=== PATIENT | female | born 1930 | race Caucasian/White ===

== ENCOUNTER 2018-01-19 12:06 | Observation (INO) ==
--- NOTE | 2018-01-19 13:05 | Emergency Department Report ---
Extremity Problem HPI - General Chief complaint: Extremity Problem,Nontraumatic Stated complaint: foot and leg pain/swelling Time Seen by Provider: 01/19/18 12:40 Source: patient, family Mode of arrival: wheelchair Limitations: no limitations - History of Present Illness HPI Narrative: PT presents with a complaint of bilateral LE edema and pain. PT states she has had intermittent swelling in the past which usually resolves by elevating her legs however legs have continued to swell and it is now difficult for her to ambulate 2/2 pain. PT denies any SOA or cough. She is on a diuretic. She reports unknown history of CHF. She lives on her own and has a daughter nearby who has been staying with her in the evenings. MD Complaint: extremity pain, extremity swelling Onset (ago): week(s) Consistency: constant - Related Data Home Medications Medication Instructions Recorded Confirmed Rivaroxaban [Xarelto] 20 mg PO WS #0 12/23/15 01/19/18 Vitamin B Complex + C [Total B + C] 1 tab PO DAILY 07/29/17 01/19/18 Cholecalciferol (Vitamin D3) 1,000 unit PO DAILY 01/19/18 01/19/18 [Vitamin D3] Digoxin [Digoxin] 125 mcg PO DAILY 01/19/18 01/19/18 Furosemide [Lasix 40 mg Tab] 40 mg PO DAILY 01/19/18 01/19/18 Metformin [Glucophage] 500 mg PO BIDWM 01/19/18 01/19/18 Potassium Chloride 10 meq PO BID 01/19/18 01/19/18 dilTIAZem HCl [Diltiazem 24Hr ER] 180 mg PO HS 01/19/18 01/19/18 Allergies Allergy/AdvReac Type Severity Reaction Status Date / Time No Known Allergies Allergy Verified 01/19/18 12:41 Review of Systems All systems: reviewed and negative except as stated Constitutional: Reports: as per HPI Cardiovascular: Reports: as per HPI Respiratory: Reports: as per HPI Musculoskeletal: Reports: as per HPI Integumentary: Reports: as per HPI PFS Patient Stated Medical History Migraine Yes: infrequent Cataracts Yes Other HEENT Yes: wears glasses Congestive Heart Failure Yes Diabetes Mellitus Type 2 Yes: "borderline" Osteoarthritis Yes Surgical History: Tonsils. Appendix. Hysterectomy - Social History Smoking status: Former smoker Household members: none Current occupational status: retired Physical Exam - Limitations Limitations: no limitations - General General appearance: alert - Normal Exams: Head:: Normocephalic without trauma Neck:: Full range of motion, without adenopathy Chest/Respirations:: Clear all landrum, with good airflow, and symmetry bilaterally Cardiovascular:: Regular rate and rhythm, without murmur or gallop, Pulses 2+ all extremities, capillary refill, <2 seconds all extremities Abdomen:: Bowel sounds positive, soft, non-tender, non-distended Integumentary:: No rashes Neurological:: Patient is alert, and oriented, cranial nerves, motor/sensory/ cerebellar, exams w/o gross deficits, to observation Psychiatric:: Patient exhibits, appropriate attention, emotion and affect - Expanded Lower Extremity Exam left Lower leg exam: Present: tenderness, swelling (3+ pitting edema) right Lower leg exam: Present: tenderness (3+ pitting edema), swelling Course Vital Signs Temperature 97.8 F 01/19/18 12:22 Pulse Rate 80 01/19/18 12:22 Respiratory Rate 18 01/19/18 12:22 Blood Pressure 154/70 H 01/19/18 12:22 Pulse Oximetry 95 01/19/18 12:22 Temperature 97.8 F 01/19/18 12:22 Pulse Rate 80 01/19/18 12:22 Respiratory Rate 18 01/19/18 12:22 Blood Pressure 154/70 H 01/19/18 12:22 Pulse Oximetry 95 01/19/18 12:22 Extremity Problem, Nontraumati - MDM Narrative Medical decision making narrative: Labs reviewed. US results per Dr Barnard negative for DVT. BNP slightly elevated at 1930. Pt does take daily lasix and was provided an additional 60mg with good result. Unknown actual output total as pt missed the collection container. Pt requires at least 2 staff to transfer from bed to [facility]. SHe does live alone. Hospitalist called for admit and will admit observation for now. Results and plan discussed with pt and family who voice understanding. - Lab Data Attestation: I reviewed the patient's lab results. Result diagrams: 01/19/18 13:25 01/19/18 13:25 Lab Results 01/19/18 01/19/18 Range/Units 13:25 13:25 WBC 6.6 (4.5-11.0) T/MM3 RBC 3.51 L (4.00-5.20) M/MM3 Hgb 11.2 L (12-16) GM/DL Hct 34.6 L (36-46) % MCV 98.6 (80-100) UM3 MCH 31.9 (26-34) UUG MCHC 32.4 (31-37) GM/DL RDW Std Deviation 47.1 (36.9-50.2) FL Plt Count 232 (130-400) T/MM3 MPV 10.3 (9.4-12.4) UM3 Immature Gran % (Auto) 0.2 (0.0-0.5) % Neut % (Auto) 70.3 H (33-66) % Lymph % (Auto) 18.9 L (23-45) % [place] % (Auto) 8.2 (0-9.0) % Eos % (Auto) 1.8 (0-4) % Baso % (Auto) 0.6 (0-2) % Neut # (Auto) 4.6 (1.8-7.7) T/MM3 Lymph # (Auto) 1.3 (1-4.8) T/MM3 [place] # (Auto) 0.5 (0-0.8) T/MM3 Eos # (Auto) 0.1 (0-0.5) T/MM3 Baso # (Auto) 0.0 (0-0.2) T/MM3 Abs Immat Gran (auto) 0.01 (0.00-0.03) T/MM3 Turbidity < 20 (0-20) Sodium 147 H (134-144) MEQ/L Potassium 4.4 (3.6-5) MEQ/L Chloride 109 H (98-107) MEQ/L Carbon Dioxide 25 (22-30) MEQ/L Anion Gap 13 (5-15) meq/L BUN 31.0 H (7-17) MG/DL Creatinine 1.0 (0.7-1.2) mg/dL GFR Calculation 53 BUN/Creatinine Ratio 31 H (6-26) RATIO Glucose 95 (65-110) MG/DL Calculated Osmolality 289 H (261-280) MOSM/KG Calcium 9.5 (8.4-10.2) MG/DL Total Bilirubin 0.60 (0.20-1.30) MG/DL Icterus Index < 2 (0-7) AST 25 (14-36) U/L ALT 15 (1-35) U/L Alkaline Phosphatase 87 (38-126) U/L NT-Pro-B Natriuret Pep 1930 H (0-175) pg/mL Total Protein 7.7 (6.3-8.2) g/dL Albumin 4.7 (3.5-5.0) g/dL Globulin 3.0 (2.4-3.6) G/DL Albumin/Globulin Ratio 1.6 (1.1-2.2) RATIO Specimen Hemolysis < 15 (0-25) - Radiology Data Attestation: I reviewed the patient's radiology results. no acute findings of US per Dr Barnard read Disposition Clinical Impression: Lower extremity edema Disposition: 02 To [facility] Condition: Improved Prescriptions: No Action Rivaroxaban [Xarelto] 20 mg PO WS #0 Vitamin B Complex + C [Total B + C] 1 tab PO DAILY Digoxin [Digoxin] 125 mcg PO DAILY dilTIAZem HCl [Diltiazem 24Hr ER] 180 mg PO HS Furosemide [Lasix 40 mg Tab] 40 mg PO DAILY Potassium Chloride 10 meq PO BID Metformin [Glucophage] 500 mg PO BIDWM Cholecalciferol (Vitamin D3) [Vitamin D3] 1,000 unit PO DAILY Referrals: Kezia Figueroa DO [Primary Care Provider] - Time of Disposition: 15:12 - Seen By: midlevel
[2018-01-19] MEDS ORDERED: FUROSEMIDE 40 MG/4 ML INJECTION IVP ONE (13:07)
[2018-01-19] MEDS: SALINE FLUSH 10ml SYRINGE IVF PRN ×3 (13:26→17:28)
--- NOTE | 2018-01-19 14:13 | Ultrasound Report ---
Indication: pedal edema PROCEDURE: US venous doppler LE BI: Encounter: Initial Comparison: None Technique: Color Doppler duplex and grayscale sonographic imaging of both lower extremities was performed. Findings: There is no evidence for acute deep venous thrombosis in either thigh. Specifically, serial graded compression was performed from the inguinal ligament to the popliteal bifurcation, bilaterally, demonstrating appropriate compressibility of the deep venous system. In addition, color and pulsed Doppler demonstrate appropriate spontaneous flow, variation with respiration, and augmentation with calf compression. At the ankle, normal flow is identified in the posterior tibial veins; these vessels are also normal in caliber. Subcutaneous edema is seen in the lower legs bilaterally. Impression: No evidence of acute DVT in either lower limb. .
[2018-01-19] MEDS ORDERED: ONDANSETRON 4 MG/2 ML INJECTION IVP PRN (15:24)
[2018-01-19] MEDS ORDERED: ACETAMINOPHEN 325 MG TABLET PO PRN (15:24)
[2018-01-19] MEDS ORDERED: SENNA + DOCUSATE TABLET PO PRN (15:24)
--- NOTE | 2018-01-19 15:58 | History & Physical Report ---
History of Present Illness Date: 01/19/18 Chief complaint: peripheral edema, a-fib, hypernatremia HPI: Camille Medellin is an 87-year-old female patient of Dr. Dunne, cardiology in [place]. She reports increased lower extremity edema over the past 2-4 weeks. She was seen by her pillow agent, Dr. Dunne, on 01/12/18 for follow up on her chronic a-fib and hypertension. At that time, records indicate that she had trace to 1+ peripheral edema bilaterally. She was also noted to have a heart rate of 120 with an irregularly irregular rhythm in the clinic. Due to her a- fib with RVR and increasing edema, her home diltiazem was decreased to 180mg daily with the initiation of digoxin 125mcg. She was instructed to 2 tabs (250 mcg) of the digoxin daily for 3 days and then decrease to 1 tab (125 mcg) daily. She was also instructed to increase her home Lasix dose to 40 mg twice a day for 5 days and then return to her regular dose of 40mg daily as well as increase her KCl 10mg to twice a daily for 5 days and then drop back to 10mg daily. Today, 01/19/18, she presented to [facility] ED with her daughter for evaluation of increased lower extremity edema. She denies a prior history of CHF. Echocardiogram from 02/2014 revealed right atrial enlargement with EF 50% and no significant valvular dysfunction while being in and out of a-fib during the exam. She denies any other complaints or concerns. No recent fevers, chill , chest pain, shortness of breath, cough, abdominal pain, nausea, vomiting, dysuria or diarrhea. She admits to living at home alone and requires assistance getting out the house to run errands. She reports that she is able to make most of her own meals and perform most activities of daily living on her own, though her daughter does come over in the evenings to help. She reports that she ambulates easily with her walker and denies any changes with her ability to ambulate or function at home. In the ED, labs were obtained and were relatively unremarkable. She was noted to have mild anemia (hgb 11.2) as well as hypernatremia (Na 147). BNP was also noted to be slightly elevated at 1930. Bilateral Doppler ultra sounds were obtained and revealed no acute DVT in either leg. She was given Lasix 60mg IV x 1 dose with good urinary output. While in the ED, family and nursing became concerned about her ability to ambulate and care for herself at home as she required a 2 person assist to transfer to the commode at bedside. Given her increased edema with concern for decreased functional ability posing risk for falls, Dr. Wetzel was consulted and she was admitted into observation status under the care of Dr. Yung for further evaluation and care. She is seen immediately upon her arrival to room 148 with nursing present. Family is not present at the time of the exam. She is breathing easily on room air and denies any current complaints. Clinical exam revealed irregularly irregular heart rate and rhythm. Lungs were clear to auscultation. Bilateral lower extremities had 2-3+ edema, though assessment is difficult due to her body habitus. Slight erythema noted to her right foot extending up her right bowers and left dorsal foot concerning for early cellulitis. No wounds appreciated on exam. Review of Systems All systems PM: 10-point ROS was reviewed, no additional remarkable complaints except - Constitutional Constitutional: Present: fatigue (chronic), weakness (chronic - unchanged). Absent: chills, fever(s), malaise - EENMT Eyes: Absent: change in vision, loss of vision, photophobia Ears: Absent: ear pain Balance: Absent: vertigo, falling to one side Nose: Absent: nosebleeds Mouth/Throat: Absent: sore throat, changes in swallowing, dry mouth - Cardiovascular Cardiovascular: Present: dyspnea on exertion (chronic), edema. Absent: chest pain, palpitations, syncope Rhythm: Present: abnormal rhythm Vascular: Present: pedal edema. Absent: pallor of an extermity, unilateral swelling - Respiratory Respiratory: Present: dyspnea on exertion. Absent: cough, dyspnea, hemoptysis, wheezing, pain on inspiration, chest congestion - Gastrointestinal Gastrointestinal: Absent: abdominal pain, change in bowel habits, diarrhea, nausea, vomiting - Genitourinary Genitourinary: Absent: dysuria, flank pain, hematuria Menstruation: post hysterectomy - Musculoskeletal Musculoskeletal: Present: abnormal gait (uses walker). Absent: back pain, deformity, muscle weakness - Integumentary/Breasts Integumentary: Absent: rash - Neurological Neurological: Absent: abnormal speech, confusion, dizziness, focal weakness, vertigo, weakness - Psychiatric Psychiatric: Absent: anxiety, depression - Endocrine Endocrine: Absent: flushing, palpitations - Hematologic/Lymphatic Hematologic/Lymphatic: Present: easy bruising - Allergic/Immunologic Allergic/Immunologic: Absent: seasonal rhinorrhea Past Medical History Medical History Updates: Atrial fibrillation. Chronic anticoagulation on Xarelto. Hypertension. Diabetes mellitus, type 2. Chronic kidney disease, stage III. GERD. Osteoarthritis. Degenerative joint disease. Morbid obesity. Anemia. Surgical History: Tonsillectomy with adenoidectomy. Appendectomy. Hysterectomy. Bilateral cataract extraction. Family History Updates: Patient reports that her mother at a young age when the patient was only 3 years old. Her father reportedly of "old age". She is unaware of any significant medical history in her family. Family History: As Above - Social History Smoking status: Never smoker Substance use type: does not use Alcohol intake frequency: does not drink Housing: house Household members: none Current occupational status: retired Does patient use chewing tobacco?: No Current residence: Apartment/Private Home Social history: PCP - Dr. Kezia Figueroa. Cardio - Dr. Dunne. Medications Home Medications Medication Instructions Recorded Confirmed Type Rivaroxaban [Xarelto] 20 mg PO WS #0 12/23/15 01/19/18 History Vitamin B Complex + C [Total B + C] 1 tab PO DAILY 07/29/17 01/19/18 History Cholecalciferol (Vitamin D3) 1,000 unit PO DAILY 01/19/18 01/19/18 History [Vitamin D3] Digoxin [Digoxin] 125 mcg PO DAILY 01/19/18 01/19/18 History Furosemide [Lasix 40 mg Tab] 40 mg PO DAILY 01/19/18 01/19/18 History Metformin [Glucophage] 500 mg PO BIDWM 01/19/18 01/19/18 History Potassium Chloride 10 meq PO BID 01/19/18 01/19/18 History dilTIAZem HCl [Diltiazem 24Hr ER] 180 mg PO HS 01/19/18 01/19/18 History Allergies Allergy/AdvReac Type Severity Reaction Status Date / Time No Known Allergies Allergy Verified 01/19/18 12:41 Exam Vital Signs: Temperature 97.8 F 01/19/18 12:22 Pulse Rate 77 01/19/18 15:43 Respiratory Rate 16 01/19/18 15:43 Blood Pressure 139/73 01/19/18 15:24 Pulse Oximetry 97 01/19/18 15:43 Comments: Patient is seen immediately upon arrival to room. Nursing present on exam. - Constitutional Present: no acute distress, well nourished, well developed, morbidly obese, cooperative - Routine HEENT Exam Head: Present: normocephalic, atraumatic Eye: Present: PERRL. Absent: conjunctival icterus ENT: Present: mucous membranes moist, oropharynx clear, dentition normal - Routine Neck Exam Present: supple, full ROM, trachea midline - Routine Chest/Breast/Axilla Exam Chest wall: Absent: pacemaker - Routine Respiratory Exam Present: CTA bilaterally. Absent: respiratory distress, wheezes - Routine Cardiovascular Exam Present: irregularly irregular - Routine Abdominal Exam Present: soft, normoactive bowel sounds, distended - Routine Extremities Exam Present: edema (2-3+), non tender, full ROM, pulses intact - Routine Back/Spine/Pelvis Exam Back/Spine: Present: full ROM. Absent: vertebral tenderness - Routine Skin Exam Present: intact, dry, warm Comments: Afebrile; slight erythema noted to right foot and anterior bowers as well as dorsal left foot concerning for early cellulitis; no lesions, wounds, bleeding or discharge. - Routine Neurological Exam Present: alert, oriented X3, moving all extremities, hearing grossly intact, normal speech - Routine Psychiatric Exam Present: normal affect, cooperative Results - Labs CBC & Chem 7: 01/19/18 13:25 01/19/18 13:25 - Impressions Date of Exam: 01/19/18 Type of Exam(s): US venous doppler [facility] Reason for Exam(s): pedal edema Findings: There is no evidence for acute deep venous thrombosis in either thigh. Specifically, serial graded compression was performed from the inguinal ligament to the popliteal bifurcation, bilaterally, demonstrating appropriate compressibility of the deep venous system. In addition, color and pulsed Doppler demonstrate appropriate spontaneous flow, variation with respiration, and augmentation with calf compression. At the ankle, normal flow is identified in the posterior tibial veins; these vessels are also normal in caliber. Subcutaneous edema is seen in the lower legs bilaterally. Impression: No evidence of acute DVT in either lower limb. Assessment and Plan (1) Lower extremity edema Current visit: Yes Status: Acute Assessment and Plan: Assessment: Acute on chronic lower extremity edema. Questionable early cellulitis to bilateral lower extremities. Hypernatremia (Na 147), present on admission. Chronic atrial fibrillation. Chronic anticoagulation on Xarelto. Hypertension. Diabetes mellitus, type 2. Chronic kidney disease, stage III. GERD. Osteoarthritis. Degenerative joint disease. Morbid obesity. Chronic anemia. Plan - 01/19/18: Admit to observation status under the care of Dr. Yung. Patient given Lasix 60mg IV in ED. Will monitor I&O closely as well as daily weight. Will obtain echocardiogram now - results pending. Home medications reviewed and will be continued. Continue Lasix 40mg daily, KCl 10 mEq daily, digoxin 125mcg daily and diltiazem 180mg daily. Monitor closely on telemetry. Given recent initiation of digoxin on 01/12/18, will check digoxin level now - results pending. Carb controlled diet with continuation of home metformin. Patient does not check blood sugars at home. Anemia on admission (Hgb 11.2) which is above baseline per prior labs. Will continue to monitor closely. No signs of acute bleeding. Recheck labs in AM to monitor blood counts, electrolytes and renal function. Continue home Xarelto for DVT prophylaxis. SCDs for DVT prophylaxis as well as EDWIGE hose. Will consult PT/OT for evaluation and treatment recommendations. Upon discharge, patient's care will be returned to her PCP. Patient wishes to be a Full Code at this time. DVT Prophylaxis: SCD's, EDWIGE Hose Resuscitation Status: Full Code - Time spent with patient Time with patient PN: 70 minutes - Physician Narrative Physician: Tawanna Yung MD Narrative: Date: 01/19/18 Time: 1750 I have independently evaluated and examined this patient. I reviewed the chart, the patient's history, and the SERVICER/PA's documented findings as above. We discussed and formulated the assessment and plan as above with additions as below: Mrs. Medellin reports progressive edema developing over about 6 months worsening significantly in the past couple of weeks leading to functional deficits as described above. Review of outpatient records indicates that just over a year ago she had no edema when seen in the office and her weight was 118.2 kg or 10 kg less than it is currently. Patient is not aware of having a sleep disorder but acknowledges that she naps frequently during the day. NAD, alert Respirations nonlabored, good airflow, breath sounds clear Irregular rhythm, S1-S2 Abdomen obese, soft, no bowel wall edema +4 edema bilateral lower extremities with palpable edema in dependent aspect of proximal calves There is minor patchy hyperpigmentation and some indication of scarring around the ankles consistent with stasis change but no indication of cellulitis by my exam Acute on chronic bilateral lower extremity edema- Venous Doppler reviewed by myself demonstrating no evidence of DVT; radiology report subcutaneous edema in the legs bilaterally. Laboratory data notable for mild normocytic anemia consistent with renal insufficiency, GFR 53, proBNP 1930 Telemetry strips reviewed-atrial fibrillation with controlled rate at present. Continue diuresis with IV Lasix; echocardiogram pending, obtain overnight oximetry on room air to exclude ROBB/OHVS; may require imaging of the abdomen to exclude mass if initial workup nonrevealing. May require Gunner wrapping of legs rather than EDWIGE hose. Hospital Course Summary Disclaimer: The visit summary below is not to be considered part of the above Progress Note. Hospital Course: Plan - 01/19/18: Admit to observation status under the care of Dr. Yung. Patient given Lasix 60mg IV in ED. Will monitor I&O closely as well as daily weight. Will obtain echocardiogram now - results pending. Obtain overnight oximetry on room air. Home medications reviewed and will be continued. Continue Lasix 40mg daily, KCl 10 mEq daily, digoxin 125mcg daily and diltiazem 180mg daily. Monitor closely on telemetry. Given recent initiation of digoxin on 01/12/18, will check digoxin level now - results pending. Carb controlled diet with continuation of home metformin. Patient does not check blood sugars at home. Anemia on admission (Hgb 11.2) which is above baseline per prior labs. Will continue to monitor closely. No signs of acute bleeding. Continue home Xarelto for DVT prophylaxis. SCDs for DVT prophylaxis as well as EDWGIE hose. Will consult PT/OT for evaluation and treatment recommendations. Upon discharge, patient's care will be returned to her PCP. Patient wishes to be a Full Code at this time.
[2018-01-19] MEDS ORDERED: CEFTRIAXONE 1 G in NS 100 ML IV SCH (16:45)
[2018-01-19 17:27] VITALS: BMI 47.2
[2018-01-19] MEDS ORDERED: NS FLUSH BAG 500ml IV PRN (17:28)
[2018-01-19] MEDS ORDERED: RIVAROXABAN 20 MG TABLET PO SCH (17:30)
[2018-01-19] MEDS ORDERED: FALL RISK - PHARMACY CONSULT MC ONE (17:40)
[2018-01-19] MEDS: METFORMIN 500 MG TABLET PO SCH (17:51)
[2018-01-20 04:02] VITALS: TEMP 96.9
[2018-01-20 07:51] VITALS: BP 131/69; RESP 14; O2SAT 97
[2018-01-20] MEDS ORDERED: DIGOXIN 125 MCG TABLET PO SCH (09:00)
[2018-01-20] MEDS ORDERED: VITAMIN B COMPLEX + C TABLET PO SCH (09:00)
[2018-01-20] MEDS ORDERED: FUROSEMIDE 20 MG/2 ML INJECTION IVP SCH (09:00)
[2018-01-20] MEDS ORDERED: FUROSEMIDE 40 MG TABLET PO SCH (09:00)
[2018-01-20] MEDS ORDERED: POLYETHYL GLYCOL 3350 17gm PACKET PO SCH (09:00)
[2018-01-20 09:02] VITALS: PULSE 68
[2018-01-20] MEDS: METFORMIN 500 MG TABLET PO SCH (09:02)
[2018-01-20] MEDS: SALINE FLUSH 10ml SYRINGE IVF PRN (09:09)
--- NOTE | 2018-01-20 15:21 | Echocardiogram ---
DATE OF PROCEDURE January 19, [address] Maribeth Wetzel This is a two-dimensional echo with spectral Doppler, color-flow and M-mode. It was obtained in a patient with congestive heart failure. Left atrium is dilated. Left ventricular end-diastolic dimension is normal. Left ventricle wall thickness is normal. LV systolic function is normal with ejection fraction of about 55%. Right atrium is normal. Right ventricle is normal. Aortic root dimension is normal. Mitral valve annulus is calcified. Mitral valve leaflets are normal with mild mitral regurgitation. Aortic valve is a trileaflet structure with no stenosis. Mild aortic insufficiency is present. Tricuspid valve shows mild tricuspid regurgitation with normal estimated pulmonary artery systolic pressure of 31. Pulmonary valve shows mild pulmonary insufficiency. There is no pericardial effusion. IMPRESSION 1. Normal LV systolic function with ejection fraction of about 55%. 2. Left atrial dilation. 3. Mitral annulus calcification with mild mitral regurgitation. 4. Mild aortic insufficiency. 5. Mild tricuspid regurgitation with normal estimated pulmonary artery systolic pressure of 31. 6. Mild pulmonary insufficiency. MTDD
--- NOTE | 2018-01-20 20:45 | Discharge Summary ---
Discharge Information Date of admission: 01/19/18 14:49 Anticipated date of discharge: 01/20/18 Attending Physician: Tawanna Yung MD Primary care physician: Kezia Figueroa DO Consults: - Discharge Diagnosis (1) Lower extremity edema Status: Acute Acute on chronic lower extremity edema. Questionable early cellulitis to bilateral lower extremities. Hypernatremia Chronic atrial fibrillation. Nocturnal hypoxemia, possible ROBB Chronic anticoagulation on Xarelto. Hypertension. Diabetes mellitus, type 2. Chronic kidney disease, stage III. GERD. Osteoarthritis. Degenerative joint disease. Morbid obesity. Chronic anemia. - Procedures Procedures: Overnight oximetry on room air revealed sawtooth pattern with multiple desaturations, total time less than 88% was 37.5 minutes and lowest saturation seen during the night was 83%. ------ Echocardiogram on 01/19/18: 1. Normal LV systolic function with ejection fraction of about 55%. 2. Left atrial dilation. 3. Mitral annulus calcification with mild mitral regurgitation. 4. Mild aortic insufficiency. 5. Mild tricuspid regurgitation with normal estimated pulmonary artery systolic pressure of 31. 6. Mild pulmonary insufficiency. - Laboratory Labs: On 01/19/18 sodium was 147, potassium 4.4, creatinine 1.0 with GFR 53, proBNP 1930, and liver enzymes normal. Digoxin level 0.9. 01/20/18 05:45 01/20/18 05:45 - Radiology Radiology: Bilateral lower extremity venous Doppler on 01/19/18: Serial graded compression was performed from the inguinal ligament to the popliteal bifurcation, bilaterally, demonstrating appropriate compressibility of the deep venous system. In addition, color and pulsed Doppler demonstrate appropriate spontaneous flow, variation with respiration, and augmentation with calf compression. At the ankle, normal flow is identified in the posterior tibial veins; these vessels are also normal in caliber. Subcutaneous edema is seen in the lower legs bilaterally. Impression: No evidence of acute DVT in either lower limb. ------ Portable chest x-ray on 01/20/18: NAD preliminarily, formal report pending ----- History of Present Illness HPI: Camille Medellin is an 87-year-old female patient of Dr. Dunne, cardiology in [place]. She reports increased lower extremity edema over the past 2-4 weeks. She was seen by her manager store, Dr. Dunne, on 01/12/18 for follow up on her chronic a-fib and hypertension. At that time, records indicate that she had trace to 1+ peripheral edema bilaterally. She was also noted to have a heart rate of 120 with an irregularly irregular rhythm in the clinic. Due to her a- fib with RVR and increasing edema, her home diltiazem was decreased to 180mg daily with the initiation of digoxin 125mcg. She was instructed to 2 tabs (250 mcg) of the digoxin daily for 3 days and then decrease to 1 tab (125 mcg) daily. She was also instructed to increase her home Lasix dose to 40 mg twice a day for 5 days and then return to her regular dose of 40mg daily as well as increase her KCl 10mg to twice a daily for 5 days and then drop back to 10mg daily. Today, 01/19/18, she presented to [facility] with her daughter for evaluation of increased lower extremity edema. She denies a prior history of CHF. Echocardiogram from 02/2014 revealed right atrial enlargement with EF 50% and no significant valvular dysfunction while being in and out of a-fib during the exam. She denies any other complaints or concerns. No recent fevers, chill , chest pain, shortness of breath, cough, abdominal pain, nausea, vomiting, dysuria or diarrhea. She admits to living at home alone and requires assistance getting out the house to run errands. She reports that she is able to make most of her own meals and perform most activities of daily living on her own, though her daughter does come over in the evenings to help. She reports that she ambulates easily with her walker and denies any changes with her ability to ambulate or function at home. In the ED, labs were obtained and were relatively unremarkable. She was noted to have mild anemia (hgb 11.2) as well as hypernatremia (Na 147). BNP was also noted to be slightly elevated at 1930. Bilateral Doppler ultra sounds were obtained and revealed no acute DVT in either leg. She was given Lasix 60mg IV x 1 dose with good urinary output. While in the ED, family and nursing became concerned about her ability to ambulate and care for herself at home as she required a 2 person assist to transfer to the commode at bedside. Given her increased edema with concern for decreased functional ability posing risk for falls, she was admitted into observation status under the care of Dr. Yung for further evaluation and care. Objective Vital signs: Temperature 96.9 F 01/20/18 07:00 Pulse Rate 68 01/20/18 09:02 Respiratory Rate 14 01/20/18 07:00 Blood Pressure 131/69 01/20/18 07:00 Pulse Oximetry 97 -RA 01/20/18 07:00 NAD, alert Respirations nonlabored, decreased airflow throughout, breath sounds clear anteriorly/posteriorly Irregular rhythm, S1-S2 Abdomen obese, soft, diminished bowel sounds +3 edema bilateral lower extremities Height/Weight/BMI: Height 1.65 m Weight 127.9 kg Body Mass Index 47.2 Hospital Course This is a general summary of the patient's hospital course. For more details refer to the complete medical record. Hospital course: Mrs. Medellin was admitted on observation basis with increased edema and difficulty ambulating. She received IV Lasix on the date of admission and again on the morning of 01/20. Review of old records indicates weight is up approximately 10 kg over the past year and with diuresis while hospitalized she took 1 kg off with discharge weight of 127.9 kg. She remained on room air throughout period of observation. She was evaluated by PT/OT on 01/20 at which time further therapy with group home was recommended but the patient indicated no interest in this option or home health/home therapy. Daughter reported that the patient has assistive devices at home and she is available to help the patient in the evenings and nights. The patient has two lift chairs at home and sleeps in the recliner rather than bed. Home furosemide dose was increased from 40 mg to 80 mg each morning and it was recommended that patient consider further testing for sleep apnea as an outpatient as nocturnal hypoxia may be contributing to lower extremity edema. Recent changes made by cardiology have resulted improved rate control and pulse ranged from the upper 60s to mid 80s during the hospitalization. Blood sugars were well controlled and no changes were made in medications other than increase furosemide dose. She is felt stable for discharge on 01/20 with instructions to follow-up with Dr. Figueroa in approximately 1-2 weeks; she is scheduled to have blood work done for Dr. Dunne in 1 week to reassess renal function and electrolytes following recent adjustments in cardiac regimen. Time spent with patient: greater than 35 minutes Resuscitation Status: Full Code Discharge Plan - Discharge Disposition Discharge Date: 01/20/18 Disposition: 01 Discharged Home, Self-Care *Condition: Improved Reason For Visit (Visit label in EMR): Pain, edema - Discharge Medications *Discharge Medications: Continue Rivaroxaban [Xarelto] 20 mg PO WS #0 Vitamin B Complex + C [Total B + C] 1 tab PO DAILY Digoxin 125 mcg PO DAILY dilTIAZem HCl [Diltiazem 24Hr ER] 180 mg PO HS Potassium Chloride 10 meq PO BID Metformin [Glucophage] 500 mg PO BIDWM Cholecalciferol (Vitamin D3) [Vitamin D3] 1,000 unit PO DAILY Changed Furosemide [Lasix 40 mg Tab] 80 mg PO DAILY #60 tab - Discharge Packet/Instructions *Diet: Low-salt, diabetic *Activity: As tolerates; you would benefit from home health for physical therapy at home *Pain Management/Treatment: Tylenol if something needed *Wound Care: Not applicable Additional Instructions: Increase furosemide to 2-40mg tablets daily, take both together in the morning. Your potassium level needs to be checked in approximately 1 week to determine if your potassium dose needs to be adjusted with a higher furosemide dose. Talk to Dr. Figueroa about possible sleep study due to oxygen levels being low at night intermittently. *Expected Signs/Symptoms: Swelling in your legs, shortness of breath with activities *Notify Physician if: Falls, increasing swelling in your legs, increasing weight *During Business Hours Contact: Dr. Figueroa or Dr. Dunne's office *After Business Hours Contact: Call [facility] at [phone] and ask that the on-call physician be paged *Pending Lab/Results: No Pending Lab - Referrals/Follow Up *Referrals/Follow Up: Kezia Figueroa DO [Primary Care Provider] - 1 Week (CALL AND SCHEDULE APPOINTMENT WITH KEZIA FIGUEROA TO BE SEEN IN 1 WEEK OFFICE NUMBER [phone]) - Patient Handouts - Dismissal Complete Discharge Instructions are:: Complete Physician Narrative - Narrative Attestation Narrative: Date: 01/20/18 Time: 2041
--- NOTE | 2018-01-21 10:16 | XRay Report ---
Indication: CHF/atrial fibrillation PROCEDURE: XR chest 1V: Encounter: Initial Comparison: December 28, 2015 Findings: The lungs are stable in appearance without new focal airspace consolidation. There is no pleural effusion or pneumothorax. The heart size, pulmonary vascularity and mediastinal contours are unchanged. IMPRESSION: Stable appearance of the chest without acute cardiopulmonary disease. .
== END 2018-01-20 15:00 | disposition home or self-care (01) ==
LOC: MED 12:06 → ED 12:06 → SUATTDRO 14:49 → MED 15:35
PROVIDERS: ADMIT Internal Medicine Cardiovascular Disease; ATTEND Internal Medicine